=== PATIENT | male | born 1960 | race Caucasian/White ===

== ENCOUNTER 2025-07-29 07:56 | Outpatient (AMB) | payer MEDICARE, MEDICAID, SELFPAY ==
--- OUTSIDE RECORDS SUMMARY | 2025-07-29 07:59 | XMS_ITS | Clinical Summary ---
Author Organization [facility] Address [address] [place] [address] Phone Care Team Providers Care Staff Weapons Officer Name Role Phone Seda Klein MD Primary Care Provider [phone] Allergies Active Allergy Reactions Criticality Noted Date Comments Aspirin Palpitations High 11/30/2013 Medications guaifenesin/eph edrine HCl (PRIMATENE ASTHMA ORAL) Take by mouth. Active albuterol HFA (PROAIR HFA ; PROVENTIL HFA ; VENTOLIN HFA) 90 mcg/actuation inhaler Inhale 2 puffs by mouth every 6 (six) hours if needed for wheezing. 6.7 g 5 Active rosuvastatin (CRESTOR) 5 mg tablet Take 1 tablet (5 mg total) by mouth 1 (one) time each day. 4 Active amLODIPine (NORVASC) 5 mg tablet Take 1 tablet (5 mg total) by mouth 1 (one) time each day. 4 Active losartan (COZAAR) 50 mg tablet Take 1 tablet (50 mg total) by mouth 1 (one) time each day. 90 tablet 5 01/26/20 25 Discontinu ed(Side effects) Active Problems Problem Noted Date Diagnosed Date Hyperlipidemia 10/22/2023 Hypertension 10/22/2023 Mild intermittent asthma without complication Surgical History Surgery Date Site/Laterality Comments OTHER SURGICAL HISTORY PROCEDURE: DENIES PREVIOUS SURGERY COLONOSCOPY 01/15/2024 - 02/14/2024 left sided tics, [address] Tyson Medical History Medical History Date Comments Mild intermittent asthma, uncomplicated DX:Mild intermittent asthma, uncomplicated Hypertension Hyperlipidemia Sleep apnea Kidney stone Dysphagia Family History Medical History Relation Name Comments Lung cancer Father Diabetes Mother Lung cancer Mother Stroke Other Paternal and Ma ternal Uncle Diabetes Sister Relation Name Status Comments Father Mother Other Sister Social History Tobacco Use Types Packs/Day Years Used Date Smoking Tobacco: Never Smokeless Tobacco: Never Tobacco Cessation:Counseling Given: Not Answered Alcohol Use Standard Drinks/Week Comments Not Currently 0 (1 standard drink = 0.6 oz pur e alcohol) Interpersonal Safety Answer Date Record ed Physical Abuse Unrecognized value 02/15/2025 Verbal Abuse Unrecognized value 02/15/2025 Sex and Gender Information Value Date Recorded Sex Assigned at Male 11/13/2024 5:39 PM EST Legal Sex Male 8:18 PM EST Gender Identity Male 11/13/2024 5:39 PM EST Sexual Orientation Straight 11/13/2024 5: 39 PM EST Obstetrics History Last Filed Vital Signs Vital Sign Reading Time Taken Comments Blood Pressure 152/76 02/15/2025 12:19 PM EDT Pulse 59 02/15/2025 12:19 PM EDT Temperature 36.1 C (97 F) 02/15/2025 11:59 AM EDT Respiratory Rate 12 02/15/2025 12:19 PM EDT Oxygen Saturation 98% 02/15/2025 12:19 PM EDT Inhaled Oxygen Concentration - - Weight 107 kg (235 lb) 02/15/2025 11:13 AM EDT Height 172.7 cm (5' 8 ) 02/15/2025 11:13 AM EDT Body Mass Index 35.73 02/15/2025 11:13 AM EDT Plan of Treatment Health Maintenance Due Date Last Done Comments RSV Immunization Adult Patients (1 - Risk 50-74 years 1-dose series) 02/25/2008 Zoster Vaccines (1 of 2) 02/25/2008 Hepatitis C Screening 10/10/2023 Medicare Annual Wellness Visit 10/10/2023 Social Influencers of Health Screening 10/10/2023 Depression Screening 09/16/2024 COVID-19 Vaccine (3 - 2024-2 6 season) 2025 10/23/2020, 10/02/2020 Influenza Vaccine (#1) 2025 Hypertension/CHF/CAD Annual BMP Blood Test 01/25/2026 01/25/2025, 11/13/2024, 03/02/2024 Falls Risk Assessment 02/15/2026 02/15/2025 Cholesterol Screening (Lipid Panel) 01/25/2030 01/25/2025, 03/02/2024 DTaP,Tdap,and Td Vaccines (2 - Td or Tdap) 04/13/2034 04/13/2024 Colorectal Cancer Screening: Colonoscopy 04/15/2035 04/15/2025, 01/29/2024 Pneumococcal Vaccine: 50+ Years Completed 04/13/2024 HIB Vaccines Aged Out No longer eligi ble based on patient's age to complete this topic HPV Vaccines Aged Out No longer eligi ble based on patient's age to complete this topic Hepatitis A Vaccines Aged Out No long er eligible based on patient's age to complete this topic Hepatitis B Vaccines Aged Out No long er eligible based on patient's age to complete this topic IPV Vaccines Aged Out No longer eligi ble based on patient's age to complete this topic MMR Vaccines Aged Out No longer eligi ble based on patient's age to complete this topic Meningococcal ACWY Vaccine Aged Out N o longer eligible based on patient's age to complete this topic Meningococcal B Vaccine Aged Out No l onger eligible based on patient's age to complete this topic RSV Immunization Patients Under 20 months Aged Out No longer eligible b ased on patient's age to complete this topic Varicella Vaccines Aged Out No longer eligible based on patient's age to complete this topic Procedures Procedure Name Priority Date/Time Associated Diagnosis Comments COLONOSCOPY Routine 04/15/2025 3:27 PM EDT COMPREHENSIVE METABOLIC PANEL Routine 01/25/2025 11:16 AM EDT Primary hypertension LIPID PANEL WITH REFLEX TO DIRECT LDL Routine 01/25/2025 11:16 AM EDT Hyperlipidemia, unspecified hyperlipidemia type from Last 3 Months or Most Recently Relevant to Health Maintenance Results * COLONOSCOPY (04/15/2025 3:27 PM EDT) Anatomical Region Laterality Modality Endoscopy us Historical Provider MD GUERRA~PROCEDURE ORDERABLES F inal Result * (ABNORMAL) Lipid panel with reflex to direct LDL (01/25/2025 11:16 AM EDT) Pathologist [facility] Cholesterol 248(H) 0 - 200 mg/dL LAB CHEMISTRY METHOD 01/25/2025 5:08 PM EDT [facility] Triglycerides 372(H) 0 - 150 mg/dL LAB CHEMISTRY METHOD 01/25/2025 5:08 PM EDT [facility] HDL 53 >=40 mg/dL LAB CHEMISTRY METHOD 01/25/2025 5:08 PM EDT [facility] LDL Calculated 121(H) 0 - 100 mg/dL LAB CHEMISTRY METHOD 01/25/2025 5:08 PM EDT [facility] VLDL Cholesterol Waldo 74.4 mg/dL LAB CHEMISTRY METHOD 01/25/2025 5:08 PM [facility] Non HDL Chol. (LDL+VLDL) 195(H) <145 mg/dL LAB CHEMISTRY METHOD 01/25/2025 5:08 PM EDT [facility] Chol/HDL Ratio 4.7(H) 0.0 - 4.4 LAB CHEMISTRY METHOD 01/25/2025 5:08 PM [facility] Blood Venous blood specimen / Unknown Venipuncture / Unknown 01/25/2025 11:16 AM EDT 01/25/2025 11:17 AM EDT us Monty BERNAL LAB BLOOD ORDERABLES Final Res ult [facility] [address] [place] [address], * Comprehensive metabolic panel (01/25/2025 11:16 AM EDT) [facility] Sodium 136 133 - 145 mmol/L LAB CHEMISTRY METHOD 01/25/2025 5:14 PM EDT [facility] Potassium 4.7 3.5 - 5.5 mmol/L LAB CHEMISTRY METHOD 01/25/2025 5:14 PM EDT [facility] Comment:Hemolysis present Chloride 105 96 - 110 mmol/L LAB CHEMISTRY METHOD 01/25/2025 5:14 PM [facility] CO2 25 21 - 32 mmol/L LAB CHEMISTRY METHOD 01/25/2025 5:14 PM [facility] Anion Gap 6 3 - 11 LAB CHEMISTRY METHOD 01/25/2025 5:14 PM [facility] Glucose 93 70 - 100 mg/dL LAB CHEMISTRY METHOD 01/25/2025 5:14 PM [facility] BUN 15 5 - 25 mg/dL LAB CHEMISTRY METHOD 01/25/2025 5:14 PM [facility] Creatinine 0.87 0.70 - 1.30 mg/dL LAB CHEMISTRY METHOD 01/25/2025 5:14 PM [facility] eGFR 95 >=60 mL/min/1. 73m2 LAB CHEMISTRY METHOD 01/25/2025 5:14 PM [facility] Comment:Calculation based on the Chronic Kidney Disease Epidemiology Collaboration (CKD-EPI) equation refit without adjustment for race. BUN/Creatinine Ratio 17.2 LAB CHEMISTRY METHOD 01/25/2025 5:14 PM [facility] Calcium 9.2 8.5 - 10.5 mg/dL LAB CHEMISTRY METHOD 01/25/2025 5:14 PM [facility] AST (SGOT) 30 10 - 42 unit/L LAB CHEMISTRY METHOD 01/25/2025 5:14 PM [facility] ALT (SGPT) 32 10 - 60 unit/L LAB CHEMISTRY METHOD 01/25/2025 5:14 PM [facility] Alkaline Phosphatase 61 42 - 121 unit/L LAB CHEMISTRY METHOD 01/25/2025 5:14 PM [facility] Total Protein 7.9 6.0 - 8.0 g/dL LAB CHEMISTRY METHOD 01/25/2025 5:14 PM [facility] Albumin 3.4 3.2 - 5.0 g/dL LAB CHEMISTRY METHOD 01/25/2025 5:14 PM EDT [facility] Total Bilirubin 0.3 0.0 - 1.4 mg/dL LAB CHEMISTRY METHOD 01/25/2025 5:14 PM EDT [facility] Blood Venous blood specimen / Unknown Venipuncture / Unknown 01/25/2025 11:16 AM EDT 01/25/2025 11:17 AM EDT us Monty BERNAL LAB BLOOD ORDERABLES Final Res ult [facility] [address] [place] [address], from Last 3 Months or Most Recently Relevant to Health Maintenance Insurance MEDICAID - [place] MEDICARE Care Teams Staff Weapons Officer Relationship Specialty Start Date End Date Seda Klein MD [address] [place] [id number] PCP - General Internal Medicine 12/25/24
--- OUTSIDE RECORDS SUMMARY | 2025-07-29 07:59 | XMS_ITS | Clinical Summary ---
Author Organization [facility] Address [address] [place] [address] Care Team Providers Care Bulk Pigment Reducer Name Role Phone Unavailable Primary Care Provider Unavailabl e Social History Tobacco Use Types Packs/Day Years Used Date Smoking Tobacco: Never Assessed Sex and Gender Information Value Date Recorded Sex Assigned at Not on file Legal Sex Male 10:34 AM EST Gender Identity Not on file Sexual Orientation Not on file Plan of Treatment Health Maintenance Due Date Last Done Comments Hepatitis C Screening 1960 DTaP/Tdap/Td (1 - Tdap) 02/25/1976 Pneumococcal 50+ years (1 of 1 - PCV) 02/25/2008 Zoster (Shingrix) (1 of 2) 02/25/2008 COVID-19 Vaccine ( - 2024-2 6 season) 2025 Influenza (#1) 2025 RSV (1 - 1-dose 75+ series) 2033 Abdominal Aorta Imaging Discontinued HPV Vaccine (No Doses Required) Completed Hep A Aged Out No longer eligi ble based on patient's age to complete this topic Hep B Aged Out No longer eligi ble based on patient's age to complete this topic Hib Aged Out No longer eligi ble based on patient's age to complete this topic Meningococcal ACWY Aged Out No longer eligible based on patient's age to complete this topic Zoster (Zostavax) Discontinued
--- NOTE | 2025-07-29 08:09 | MHC.PC.OV ---
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 Accompanied by: Self / Same As Patient Allergies acetaminophen Allergy (Intermediate, Verified 07/29/25 08:15) heart racing Medication List - Last Reconciled 07/29/25 by Omero Byers MD albuterol sulfate 90 mcg/actuation (Ventolin HFA) 2 puffs inhalation Q6H PRN rosuvastatin 5 mg PO DAILY Tobacco use date assessed: 07/29/25 Fall risk assessment: No Falls in past year Last assessed Fall Risk: 07/29/25 Dental Screening Dental Screen Date: 07/29/25 Did you have a dental visit in the last 12 months?: Yes Was dental information given to patient?: Patient has dentist HPI HPI Comments History of Present Illness Details History of Present Illness The patient is a 65-year-old male presenting for a general medical evaluation. Chronic Asthma: The patient has a history of chronic asthma managed with an albuterol (Ventolin) inhaler and Primatene nasal spray as needed. His last emergency room visit for an asthma attack was approximately eight years ago. Hyperlipidemia: The patient has a history of hyperlipidemia and was previously taking rosuvastatin, but he ran out of the medication. He previously experienced significant foot swelling from a different, unspecified cholesterol medication, which required an emergency room visit. Due to this adverse reaction, he has refused to take that particular medication since. Health Maintenance: The patient has undergone two colonoscopies in the past, with the most recent one occurring last year with good results. Surgical History: - The patient denies any history of surgeries. Medications: - Albuterol (Ventolin) inhaler for asthma. - Primatene nasal spray for asthma. - Rosuvastatin for hyperlipidemia (not currently taking). - DayQuil taken prophylactically. Social History: - Substance Use: Denies smoking, alcohol consumption, and illicit drug use. - Employment: Retired for about one year. 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 - Weight: Reports weight gain since retiring. - Living Situation: Lives with his brother and serves as his caregiver. - Sleep: Reports sleeping about 5 hours per night, often waking at 3:00 AM. Diagnostic Results: - Colonoscopy: Last performed the previous year, with good results. Past Medical History - Chronic asthma, with last hospitalization approximately 8 years ago. - Hyperlipidemia, history of rosuvastatin use. - Adverse drug reaction (peripheral edema) to an unspecified cholesterol medication, which led to an emergency room visit. - Colonoscopy screening (x2), with the last one being the previous year and normal results. Health Maintenance - Will order comprehensive lab work to get a complete picture of the patient's health status. - Labs to include: complete blood count (CBC), comprehensive metabolic panel (CMP), hemoglobin A1c, lipid panel, hepatitis B, hepatitis C, HIV, magnesium, thyroid studies, urine studies, vitamin B12, folate, and vitamin D. - Recommended the patient take Vitamin C to boost the immune system. - Plan to follow up in two weeks to review the results and make any necessary adjustments to the treatment plan. [facility] Medical History (Updated 07/29/25 @ 09:00 by Omero Byers MD) Elevated blood pressure reading Class 2 obesity Hyperlipidemia Asthma, mild intermittent Family History (Updated 07/29/25 @ 08:22 by Ronel Donaldson CMA) Mother Diabetes Alzheimer disease Father Dementia Diabetes Social History Housing: Apartment Patient Tobacco Use Status: Never used Tobacco service: No Current occupational status: retired Cognitive needs: No Hearing needs: No Vision needs: No Questionnaire PHQ-9 Over the last 2 weeks, how often have you been bothered by any of the following problems? 1. Little interest or pleasure in doing things: not at all 2. Feeling down, depressed, or hopeless: not at all 3. Trouble falling or staying asleep, or sleeping too much: not at all 4. Feeling tired or having little energy: not at all 5. Poor appetite or overeating: not at all 6. Feeling bad about yourself - or that you are a failure or have let yourself or your family down: not at all 7. Trouble concentrating on things, such as reading the newspaper or watching television: not at all 8. Moving or speaking so slowly that other people could have noticed. Or the opposite - being so fidgety or restless that you have been moving around a lot more than usual: not at all 9. Thoughts that you would be better off or of hurting yourself in some way: not at all Total score: 0 Depression Screening Interpretation: Negative Depression Screening Done: Yes Source: Developed by Drs. Andrés Burkett, Penny Manzano, Viet Monroe and colleagues, with an educational loly from [employer]. Thrive Questionnaire Date Thrive assessed: 07/29/25 I am a: Patient What is your living situation today?: I have a steady place to live Within the past 12 months, did the food you bought not last and you didn't have the money to get more?: Sometimes True Within the past 12 months, did you worry whether your food would run out before you got money to buy more?: Never true Do you have trouble paying for medicines?: No Do you have trouble getting transportation to medical appointments?: No THRIVE Score: 1 HENRIQUE-7 AMB Questionnaire HENRIQUE-7 Date HENRIQUE - 7 assessed: 07/29/25 Feeling nervous, anxious, or on edge: 0 = Not at all Not being able to stop or control worryin = Not at all Worrying too much about different things: 1 = Several days Trouble relaxin = Not at all Being so restless that it is hard to sit still: 0 = Not at all Becoming easily annoyed or irritable: 1 = Several days Feeling afraid as if something awful might happen: 0 = Not at all Total HENRIQUE-7 score (0-4 normal; 5-9 mild; 10-14 moderate; 15-21 severe): 2 Source: Developed by Drs. Andrés Burkett, Penny Manzano, Viet Monroe and colleagues, with an educational loly from [employer]. Review of Systems Narrative Review of Systems - Respiratory: Reports chronic asthma. - Constitutional: Denies feeling sick. - Neurological: Reports hand shaking, which he attributes to taking Dayquil. - Genitourinary/Gastrointestinal: Reports normal urination and bowel movements. - Sleep: Reports sleeping for about 5 hours per night. 10-point ROS reviewed and negative except as noted in HPI Physical exam (Primary Care) Vital Signs: Last Vital Signs Temp 98.3 F 07/29/25 08:18 Pulse 72 07/29/25 08:18 Resp 20 07/29/25 08:18 BP 160/90 H 07/29/25 08:18 Pulse Ox 95 07/29/25 08:18 Oxygen Delivery Method Room Air 07/29/25 08:18 BMI result Body Mass Index 35.8 Tobacco/Smoking Status: Tobacco use Status Tobacco use date assessed 07/29/25 07/29/25 08:10 Patient Tobacco Use Status Never used Tobacco 07/29/25 08:10 PHQ-9: PHQ-9 Score PHQ-9: Total score 0 07/29/25 08:47 Depression Screening Interpretation: Negative Thrive Assessment: Date of Thrive Assessment Date Thrive assessed 07/29/25 07/29/25 08:10 Narrative Physical Exam General: Well-appearing, in no acute distress. Vital signs: Within normal limits. HEENT: Normocephalic, atraumatic. PERRLA, EOMI. Conjunctiva clear, sclera anicteric. Oropharynx clear, mucous membranes moist. TMs intact bilaterally. Neck: Supple, no lymphadenopathy, no thyromegaly, no JVD or carotid bruits. Cardiovascular: RRR, normal S1/S2, no murmurs, rubs, or gallops. Peripheral pulses 2+ and symmetric. No edema. Respiratory: Lungs clear to auscultation bilaterally, no wheezes, rales, or rhonchi. Normal effort. Abdomen: Soft, non-tender, non-distended. Normoactive bowel sounds. No hepatosplenomegaly, no masses. MSK: Full range of motion, no joint swelling or deformity. Normal gait. Skin: Warm, dry, intact. No rashes, lesions, or pallor. Neuro: Alert and oriented x3. Cranial nerves II-XII intact. Strength 5/5 throughout. Sensation intact. Reflexes 2+ symmetric. Normal coordination and gait. Psych: Appropriate mood and affect. Normal judgment and insight. Office Procedures Flu Questionnaire Does the patient have a severe egg allergy?: No Does the patient have severe life threatening allergies?: No Does the patient have a fever or illness today?: No Has the patient ever had Guillain-[place] Syndrome?: No Has the patient ever had any past reaction to a flu shot?: No Immunizations Fluarix [id number] (PF) 45 mcg (15 mcg x 3)/0.5 mL IM syringe Performing Provider: Omero Byers MD Performing Location: [facility] Documented (not given) by: Ronel Donaldson CMA on 07/29/25 08:23 Reason Not Given: Patient Refused Coding Level of Care Code New Pt Level 4 (35155) Diagnoses Asthma, mild intermittent J45.20 Hyperlipidemia E78.5 Class 2 obesity E66.9 Elevated blood pressure reading R03.0 Assessment & Plan Assessment & Plan (1) Asthma, mild intermittent: Code(s): J45.20 - Mild intermittent asthma, uncomplicated Category: Medical (2) Hyperlipidemia: Code(s): E78.5 - Hyperlipidemia, unspecified Category: Medical (3) Class 2 obesity: Code(s): E66.9 - Obesity, unspecified Category: Medical (4) Elevated blood pressure reading: Code(s): R03.0 - Elevated blood-pressure reading, without diagnosis of hypertension Category: Medical Plan Consent The plan to order comprehensive blood work and urine studies was discussed with the patient, who was asked how that sounded. The patient provided verbal consent by responding, All right. Patient was informed and verbally consented to the use of an ambient scribe for clinic note documentation during this visit. Plan 1. Hyperlipidemia - A lipid panel will be ordered to assess current cholesterol levels, including good and bad cholesterol and triglycerides. - Management will be determined at the two-week follow-up appointment based on lab results. Discussion Notes I explained to the patient that I will be ordering a comprehensive set of blood and urine tests to get a complete picture of his overall health. These tests will include a complete blood count, a comprehensive metabolic panel to check liver and kidney function, a hemoglobin A1c for blood sugar, a lipid panel for cholesterol, and screening for hepatitis B, C, and HIV, as well as thyroid function and vitamin levels. We will schedule a follow-up appointment in two weeks to review these results and decide on any necessary medication or treatment adjustments. The patient understood and agreed to this plan. Patient Instructions - Please go to the lab to have the blood and urine tests done as ordered. - We will see you back in the office in two weeks to discuss your test results and next steps. - You can take Vitamin C to help support your immune system. Medical Decision Making The patient is a 65-year-old male with a history of chronic asthma and hyperlipidemia presenting for a general medical evaluation. He has been non-adherent with his cholesterol medication, rosuvastatin, as he ran out. Given his history of a significant adverse reaction (peripheral edema) to a previous, different cholesterol medication, re-evaluation of his lipid profile is necessary before determining the appropriate next steps for management. To establish a comprehensive baseline of his current health, especially as a new patient to me and following his recent assisted, a broad panel of labs including CBC, CMP, HbA1c, thyroid panel, vitamin levels, and infectious disease screening is indicated. A follow-up visit in two weeks is planned to review these results and formulate a definitive treatment plan. Total time spent caring for the patient today was 30 minutes. This includes time spent before the visit reviewing the chart, time spent documenting, and time spent reviewing laboratory results, diagnostic imaging, medications, performing a medically necessary evaluation, counseling on diagnoses, care coordination Orders: Orders Influenza [id number] Immunization Today Z23 - Encounter for immunization Complete Blood Count Auto Diff Today Z13.9 - Encounter for screening, unspecified Hepatitis B Surface Antigen Today Z13.9 - Encounter for screening, unspecified Syphilis Screen Today Z13.9 - Encounter for screening, unspecified Hepatitis C Antibody Today Z13.9 - Encounter for screening, unspecified HIV Ab/Ag Today Z13.9 - Encounter for screening, unspecified UA CC w/rflx Micro + Cult Today Z13.9 - Encounter for screening, unspecified Hemoglobin A1c Today Z13.9 - Encounter for screening, unspecified Magnesium Today Z13.9 - Encounter for screening, unspecified Hepatitis B Surface Antibody Today Z13.9 - Encounter for screening, unspecified Comprehensive Met. Panel Today Z13.9 - Encounter for screening, unspecified TSH reflex Free T4 Today Z13.9 - Encounter for screening, unspecified Lipid Panel Today Z13.9 - Encounter for screening, unspecified Vitamin B12 and Folate Today Z13.9 - Encounter for screening, unspecified Vitamin D 1,25 dihydroxy Today Z13.9 - Encounter for screening, unspecified
[2025-07-29 08:18] VITALS: BP 160/90; PULSE 72; RESP 20; TEMP 36.8; O2SAT 95; BMI 35.8
== END 2025-07-29 08:48 | disposition home or self-care (01) ==
PROVIDERS: Visit Provider Student in an Organized Health Care Education/Training Program
DX: J45.20 Mild intermittent asthma, uncomplicated (principal); E78.5 Hyperlipidemia, unspecified; E66.9 Obesity, unspecified; R03.0 Elevated blood-pressure reading, without diagnosis of hypertension; Z23 Encounter for immunization

== ENCOUNTER 2025-07-29 07:56 | Outpatient (REF) | payer MEDICAID, SELFPAY ==
[2025-07-29 13:21] LABS: MANUAL DIFF FLAG NO
[2025-07-29 13:33] LABS: Appearance Urine Clear; Glucose Urine UA Negative (Negative); PH 5.5 (5.0-9.0); Specific Gravity - Urine >= 1.030 (1.005-1.025)
[2025-07-29 13:42] LABS: Hematocrit 41.4 % (42.0-52.0); Hemoglobin 13.6 g/dl (14.0-18.0); Imm Gran Abs Auto 0.01 X10*3/uL (0.00-0.03); Imm Gran Pct Auto 0.1 % (0.0-0.4); Lymphocytes Absolute Auto 1.5 X10*3/uL (1.2-4.9); Mean Corpuscular HGB Conc 32.9 g/dl (31.0-36.0); Mean Corpuscular Hemoglobin 28.0 pg (27.0-33.0); Mean Corpuscular Volume 85.2 fL (80.0-98.0); NRBC Abs Auto 0.000 X10*3/uL (0.0-0.012); NRBC Pct Auto 0.0 /100WBC (0.0-0.2); Platelet Count 189 X10*3/uL (160-400); Red Blood Count 4.86 X10*6/uL (4.60-5.80); White Blood Count 7.2 X10*3/uL (4.8-10.8)
[2025-07-29 14:09] LABS: Total Hemoglobin (HGBA1C) 2351.7426 umol/L
[2025-07-29 14:27] LABS: Alanine Aminotransferase 21 U/L (0-40); Albumin Level 4.1 g/dL (3.5-5.0); Alkaline Phosphatase 56 U/L (39-117); Anion Gap 10 (12-20); Aspartate Amino Transferase 27 U/L (5-37); Blood Urea Nitrogen 11 mg/dL (9-16); Calcium 9.4 mg/dL (8.4-10.2); Carbon Dioxide 28 mmol/L (22-29); Chloride 107 mmol/L (96-108); Cholesterol 241 mg/dL (<200); Estimated Glomerular Filt Rate > 60; HDL Cholesterol 50 mg/dL (>40); Magnesium 1.9 mg/dL (1.6-2.6); Potassium 4.2 mmol/L (3.3-5.1); Sodium 141 mmol/L (135-145); Total Protein 7.7 g/dL (6.5-8.0); Triglycerides 147 mg/dL (<150)
[2025-07-29 14:51] LABS: Folate 9.7 ng/mL (> or = 4.0); Vitamin B12 620 pg/mL (200-900)
[2025-07-30 03:51] LABS: Syphilis Screen Reactive (Nonreactive)
[2025-07-30 04:05] LABS: HBS Num1 0.00 mIU/mL (0-7.99); HBsAGNum1 0.39 S/CO (0.00-0.99); HIV Num 1 0.06 S/CO (0.00-0.99); Hepatitis B Surface Antigen Negative (Negative); ~HepC Num1 0.15 S/CO (0.00-0.79); ~Hepatitis B Surface Antibody NONREACTIVE (Nonreactive); ~Hepatitis C Antibody Nonreactive (Nonreactive)
[2025-08-02 15:33] LABS: VITAMIN D (1,25 OH) D3 41 pg/mL; Vit D (1,25-Dihydroxy) Total 41 pg/mL (18-72); Vitamin D (1,25 OH) D2 <8 pg/mL
[2025-08-07 15:13] LABS: T.Pallidum Particle Agg Test Inconclusive (Nonreactive)
== END 2025-07-29 07:57 | disposition home or self-care (01) ==
LOC: HO.HKASLDS 07:56
PROVIDERS: PCP Student in an Organized Health Care Education/Training Program; Visit Provider Student in an Organized Health Care Education/Training Program
DX: Z13.9 Encounter for screening, unspecified (principal); Z28.82 Immunization not carried out because of caregiver refusal; J45.20 Mild intermittent asthma, uncomplicated; E78.5 Hyperlipidemia, unspecified; E66.9 Obesity, unspecified; R03.0 Elevated blood-pressure reading, without diagnosis of hypertension; Z79.899 Other long term (current) drug therapy
CPT/HCPCS: 36415; 80053; 80061; 81003; 82607; 82652; 82746; 83036; 83735; 84443; 85025; 86592; 86706; 86780; 86803; 87340; 87389; 90471; 99202

== ENCOUNTER 2025-08-16 11:08 | Outpatient (AMB) | payer MEDICARE, MEDICAID, SELFPAY ==
[2025-08-16 11:17] VITALS: BP 151/81; PULSE 73; TEMP 36.7; O2SAT 95; BMI 34.9
--- NOTE | 2025-08-16 11:17 | MHC.PC.OV ---
Vital Signs 08/16/25 11:17 Height 5 ft 8.11 in Weight 230 lb 4 oz BMI 34.9 BP 151/81 H Blood Pressure Location Lt brachial Position Sitting Pulse 73 Pulse Source Pulse Oximeter Temp 98.1 F Temp Source Oral Pulse Oximetry (%) 95 Oxygen Delivery Method Room Air Intake Visit Reasons: 2 wk - lab review Intake Note: still having difficulty swallowing. Accompanied by: Self / Same As Patient Allergies acetaminophen Allergy (Intermediate, Verified 08/16/25 11:17) heart racing Medication List - Last Reconciled 08/16/25 by Omero Byers MD albuterol sulfate 90 mcg/actuation (Ventolin HFA) 2 puffs inhalation Q6H PRN rosuvastatin 10 mg PO DAILY Tobacco use date assessed: 08/16/25 Fall risk assessment: No Falls in past year Last assessed Fall Risk: 08/16/25 Dental Screening Dental Screen Date: 08/16/25 Did you have a dental visit in the last 12 months?: Yes HPI HPI Comments History of Present Illness Details History of Present Illness The patient is a 65 year old individual presenting for a review of lab results. Anemia: The patient was found to have mild anemia, which is suspected to be due to iron deficiency. The patient notes this issue tends to come and go. The patient denies associated symptoms such as fatigue, shortness of breath, or dizziness upon standing. Hyperlipidemia: The patient is taking rosuvastatin 5 mg for hyperlipidemia. Recent lab results show a total cholesterol of 241 and an LDL cholesterol of 162. Hypertension: The patient has a history of hypertension and was previously prescribed amlodipine by another provider, but discontinued it due to lower extremity edema. The patient owns a home blood pressure cuff but has not been monitoring pressures at home. Dysphagia: The patient reports a recurrence of dysphagia, which presented a couple of months ago. Symptoms include the sensation of food being unable to go down, sometimes resulting in regurgitation. The patient was evaluated by a hose tester who performed a procedure to open it a little bit, after which symptoms temporarily resolved. The dysphagia is intermittent and can be severe enough to prevent eating for a whole day. History of Syphilis: The patient reports a history of syphilis approximately 30 years ago, which was treated with 38 injections. Recent lab work revealed a positive syphilis antibody. History of Herpes: The patient has a history of herpes but reports no recent breakouts. Surgical History: - History of a gastrointestinal procedure for dysphagia, described as having the area opened a little bit by a hose tester a few months ago. Medications: - Rosuvastatin 5 mg: for hyperlipidemia. - Amlodipine: previously taken for hypertension but stopped by the patient due to leg swelling. Social History: - Tobacco: The patient denies smoking. - Diet: The patient was counseled on increasing iron-rich foods such as kidney beans, lentils, liver, broccoli, and spinach to help with anemia. Diagnostic Results: - Chemistry panel: Mild anemia present, suspected to be iron deficiency. - Lipid panel: Total cholesterol is 241, and LDL cholesterol is 162. - Vitamin B12: Appears good. - Vitamin D: Appears good. - Thyroid function tests: Appear good. - Serology: Syphilis antibody is positive. Past Medical History - History of syphilis, treated approximately 30 years ago. - History of herpes simplex virus, without recent outbreaks. - Hypertension, with amlodipine intolerance resulting in leg swelling. - Hyperlipidemia. - Intermittent anemia. - Dysphagia, previously evaluated by a hose tester. Health Maintenance - Discussed dietary modifications to include iron-rich foods like kidney beans, lentils, liver, broccoli, and spinach to manage anemia. - Provided instructions for home blood pressure monitoring. [facility] Medical History (Updated 08/16/25 @ 12:50 by Omero Byers MD) History of herpes genitalis History of syphilis Anemia Hypertension Swallowing difficulty Elevated blood pressure reading Class 2 obesity Hyperlipidemia Asthma, mild intermittent Family History Mother Diabetes Alzheimer disease Father Dementia Diabetes Social History Housing: Apartment Patient Tobacco Use Status: Never used Tobacco service: No Current occupational status: retired Cognitive needs: No Hearing needs: No Vision needs: No Questionnaire PHQ-9 Over the last 2 weeks, how often have you been bothered by any of the following problems? 1. Little interest or pleasure in doing things: not at all 2. Feeling down, depressed, or hopeless: not at all 3. Trouble falling or staying asleep, or sleeping too much: not at all 4. Feeling tired or having little energy: not at all 5. Poor appetite or overeating: not at all 6. Feeling bad about yourself - or that you are a failure or have let yourself or your family down: not at all 7. Trouble concentrating on things, such as reading the newspaper or watching television: not at all 8. Moving or speaking so slowly that other people could have noticed. Or the opposite - being so fidgety or restless that you have been moving around a lot more than usual: not at all 9. Thoughts that you would be better off or of hurting yourself in some way: not at all Total score: 0 Depression Screening Interpretation: Negative Depression Screening Done: Yes Source: Developed by Drs. Andrés Burkett, Viet Green and colleagues, with an educational loly from [employer]. Thrive Questionnaire Date Thrive assessed: 08/16/25 I am a: Patient What is your living situation today?: I have a steady place to live Within the past 12 months, did the food you bought not last and you didn't have the money to get more?: Sometimes True Within the past 12 months, did you worry whether your food would run out before you got money to buy more?: Never true Do you have trouble paying for medicines?: No Do you have trouble getting transportation to medical appointments?: No Do you have trouble paying your heating and electricity bill?: I choose not to answer this question THRIVE Score: 1 AUDIT C Alcohol Use Questionnaire (AUDIT-C) 1. How often do you have a drink containing alcohol?: Never Total Score: 0 HENRIQUE-7 AMB Questionnaire HENRIQUE-7 Date HENRIQUE - 7 assessed: 08/16/25 Feeling nervous, anxious, or on edge: 0 = Not at all Not being able to stop or control worryin = Not at all Worrying too much about different things: 1 = Several days Trouble relaxin = Not at all Being so restless that it is hard to sit still: 0 = Not at all Becoming easily annoyed or irritable: 1 = Several days Feeling afraid as if something awful might happen: 0 = Not at all Total HENRIQUE-7 score (0-4 normal; 5-9 mild; 10-14 moderate; 15-21 severe): 2 Source: Developed by Drs. Andrés Burkett, Penny Manzano, Viet Monroe and colleagues, with an educational loly from [employer]. Review of Systems Narrative Review of Systems - Constitutional: Denies fatigue. - Cardiovascular: Denies orthostatic dizziness. - Respiratory: Denies shortness of breath. - Gastrointestinal: Reports dysphagia and regurgitation. - Integumentary: Reports history of herpes but denies current breakouts. - Musculoskeletal: Reports history of lower extremity edema with amlodipine use. 10-point ROS reviewed and negative except as noted in HPI Physical exam (Primary Care) Vital Signs: Last Vital Signs Temp 98.1 F 08/16/25 11:17 Pulse 73 08/16/25 11:17 BP 151/81 H 08/16/25 11:17 Pulse Ox 95 08/16/25 11:17 Oxygen Delivery Method Room Air 08/16/25 11:17 BMI result Body Mass Index 34.9 Tobacco/Smoking Status: Tobacco use Status Tobacco use date assessed 08/16/25 08/16/25 11:20 Patient Tobacco Use Status Never used Tobacco 08/16/25 11:20 PHQ-9: PHQ-9 Score PHQ-9: Total score 0 08/16/25 11:20 Depression Screening Interpretation: Negative Thrive Assessment: Date of Thrive Assessment Date Thrive assessed 08/16/25 08/16/25 11:20 Narrative Physical Exam General: Well-appearing, in no acute distress. Vital signs: Within normal limits. HEENT: Normocephalic, atraumatic. PERRLA, EOMI. Conjunctiva clear, sclera anicteric. Oropharynx clear, mucous membranes moist. TMs intact bilaterally. Neck: Supple, no lymphadenopathy, no thyromegaly, no JVD or carotid bruits. Cardiovascular: RRR, normal S1/S2, no murmurs, rubs, or gallops. Peripheral pulses 2+ and symmetric. No edema. Respiratory: Lungs clear to auscultation bilaterally, no wheezes, rales, or rhonchi. Normal effort. Abdomen: Soft, non-tender, non-distended. Normoactive bowel sounds. No hepatosplenomegaly, no masses. MSK: Full range of motion, no joint swelling or deformity. Normal gait. Skin: Warm, dry, intact. No rashes, lesions, or pallor. Neuro: Alert and oriented x3. Cranial nerves II-XII intact. Strength 5/5 throughout. Sensation intact. Reflexes 2+ symmetric. Normal coordination and gait. Psych: Appropriate mood and affect. Normal judgment and insight. Office Procedures Flu Questionnaire Does the patient have a severe egg allergy?: No Does the patient have severe life threatening allergies?: No Does the patient have a fever or illness today?: No Has the patient ever had Guillain-Alpine Syndrome?: No Has the patient ever had any past reaction to a flu shot?: No Immunizations Fluarix [id number] (PF) 45 mcg (15 mcg x 3)/0.5 mL IM syringe Performing Provider: Omero Byers MD Performing Location: [facility] [place] [facility] Documented (not given) by: Ronel Donaldson CMA on 08/16/25 11:32 Reason Not Given: Patient Refused Coding Level of Care Code Est Pt Level 3 (02488) Diagnoses Hyperlipidemia E78.5 Hypertension I10 Class 2 obesity E66.9 Swallowing difficulty R13.10 Asthma, mild intermittent J45.20 Anemia D64.9 History of syphilis Z86.19 History of herpes genitalis Z86.19 Assessment & Plan Assessment & Plan (1) Hyperlipidemia: Code(s): E78.5 - Hyperlipidemia, unspecified Category: Medical (2) Hypertension: Code(s): I10 - Essential (primary) hypertension Category: Medical (3) Class 2 obesity: Code(s): E66.9 - Obesity, unspecified Category: Medical (4) Swallowing difficulty: Code(s): R13.10 - Dysphagia, unspecified Category: Medical (5) Asthma, mild intermittent: Code(s): J45.20 - Mild intermittent asthma, uncomplicated Category: Medical (6) Anemia: Code(s): D64.9 - Anemia, unspecified Category: Medical (7) History of syphilis: Code(s): Z86.19 - Personal history of other infectious and parasitic diseases Category: Medical (8) History of herpes genitalis: Code(s): Z86.19 - Personal history of other infectious and parasitic diseases Category: Medical Plan Consent Patient was informed and verbally consented to the use of an ambient scribe for clinic note documentation during this visit. Plan 1. Iron-Deficiency Anemia - Prescribed iron supplementation. - Prescribed ascorbic acid (Vitamin C) to be taken with iron to improve absorption. - Advised to take one hour before or two hours after eating. - Counseled on potential side effects, including constipation and dark stools, and recommended increasing water intake or using [id number] MiraLAX if needed. - Plan to repeat labs in three to six months to reassess. 2. Hyperlipidemia - Increased rosuvastatin dosage from 5 mg to 10 mg daily to achieve an LDL cholesterol target of below 100. 3. Hypertension - Discontinued amlodipine due to side effect of lower extremity edema. - Prescribed lisinopril 10 mg daily. - Instructed the patient on home blood pressure monitoring, to be performed twice daily for two weeks. - Plan to follow up in two weeks to review the blood pressure log and determine if dose adjustment is necessary. 4. Dysphagia - Advised the patient to contact the hose tester they previously saw to report the recurrence of symptoms. - A referral to gastroenterology was provided in case a new one is required. Discussion Notes I reviewed the patient's lab results, which indicated mild anemia, likely due to iron deficiency. We discussed treatment options, and the patient opted for supplementation, so I prescribed iron with vitamin C to enhance absorption, counseling on potential side effects like constipation and dark stools. The patient's cholesterol remains high, with an LDL of 162. I explained the goal is to lower this below 100 and accordingly increased the rosuvastatin dose to 10 mg. For hypertension, I initiated lisinopril 10 mg, as the patient had previously stopped amlodipine due to leg swelling. I discussed the rare risk of angioedema with lisinopril and provided instructions for home blood pressure monitoring to guide future dose adjustments. The positive syphilis antibody test was discussed and attributed to a past treated infection, requiring no further investigation. The patient reported a recurrence of dysphagia, and I advised the patient to contact the specialist who had previously managed it. A new referral for gastroenterology was provided in case it is needed. A follow-up visit is scheduled in two weeks to review the blood pressure log. Patient Instructions - An iron pill and a vitamin C pill have been sent to your pharmacy. - Take the vitamin C first, then the iron, as this helps your body absorb the iron better. - Take the iron one hour before you eat or two hours after you eat. - The iron may make you constipated and may make your stool dark, which is normal. - If you become constipated, drink more water or you can buy MiraLAX at the pharmacy. - You will now take rosuvastatin 10 mg for your cholesterol instead of 5 mg. - A new medication for blood pressure, lisinopril 10 mg, has been sent to your pharmacy. - Please check your blood pressure at home every morning and every night for the next two weeks. - When you check your blood pressure, sit down and relax for 10 minutes first. Keep your feet on the floor and your arm at heart level. - Bring your blood pressure log with you to your next appointment in two weeks. - Please call your hose tester's office to let them know your swallowing problems have returned. Medical Decision Making The patient is a 65-year-old individual presenting for a review of laboratory results. The labs revealed a mild, asymptomatic anemia, which is likely iron deficiency-related. Given the patient is asymptomatic, oral iron supplementation with vitamin C for enhanced absorption is appropriate, with a plan to re-evaluate with repeat labs in 3-6 months. Hyperlipidemia is inadequately controlled on rosuvastatin 5 mg, with a total cholesterol of 241 and an LDL of 162. To achieve the goal LDL of <100, the rosuvastatin dose was increased to 10 mg. The patient has hypertension but discontinued amlodipine due to the known side effect of lower extremity edema. Lisinopril 10 mg, an AQUILES inhibitor, was initiated as an alternative, and the patient was counseled on the rare but serious side effect of angioedema. Home blood pressure monitoring will be essential for titrating the dose, and a follow-up in two weeks is scheduled for this purpose. The positive syphilis antibody is consistent with the patient's history of a treated infection 30 years prior and requires no further workup. The recurrent dysphagia requires specialist re-evaluation. The patient was advised to contact the previous hose tester, and a referral was provided to facilitate the visit. Total Time Statement 20 min Total time spent caring for the patient today includes pre-visit chart review, documentation, review of laboratory and diagnostic imaging results, medication reconciliation, medically necessary evaluation, counseling on diagnoses, care coordination, ordering appropriate tests and medications, review of tests performed by other providers, reporting test results to the patient, and communication with other healthcare providers. Orders: Orders Influenza [id number] Immunization Today Z23 - Encounter for immunization Referrals Gastroenterology Referral R13.10 - Dysphagia, unspecified Medications: New ferrous sulfate 325 mg PO DAILY 90 tabs 0RF rosuvastatin 10 mg PO DAILY 90 tabs 0RF albuterol sulfate 90 mcg/actuation (Ventolin HFA) 2 puffs inhalation Q6H PRN 8.5 grams 0RF shortness of breath or wheezing lisinopril 10 mg PO DAILY 30 tabs 0RF ascorbic acid (vitamin C) 500 mg PO DAILY 90 tabs 0RF
--- OUTSIDE RECORDS SUMMARY | 2025-08-16 14:36 | XMS_ITS ---
[facility] Name [facility] Organization [facility] Care Team Organization Name Specialty Phone Email Start Date End [facility] 05/05/2025 [facility] Seda Klein Primary [facility] 02/22/2023 024
--- OUTSIDE RECORDS SUMMARY | 2025-08-16 14:36 | XMS_ITS | Clinical Summary ---
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 Farmer Name Role Phone Seda Klein MD Primary Care Provider [phone] Allergies Active Allergy Reactions Criticality Noted Date [...] direct LDL (01/25/2025 11:16 AM EDT) Pathologist [facility] Cholesterol 248(H) 0 - 200 mg/dL LAB CHEMISTRY METHOD 01/25/2025 5:08 PM EDT [facility] Triglycerides 372(H) 0 - 150 mg/dL LAB CHEMISTRY METHOD 01/25/2025 5:08 PM EDT [facility] HDL 53 >=40 mg/dL LAB CHEMISTRY METHOD 01/25/2025 5:08 PM EDT [facility] LDL Calculated 121(H) 0 - 100 mg/dL LAB CHEMISTRY METHOD 01/25/2025 5:08 PM EDT [facility] VLDL Cholesterol Waldo 74.4 mg/dL LAB CHEMISTRY METHOD 01/25/2025 5:08 PM [facility] Non HDL Chol. (LDL+VLDL) 195(H) <145 mg/dL LAB CHEMISTRY METHOD 01/25/2025 5:08 PM EDT [facility] Chol/HDL Ratio 4.7(H) 0.0 - 4.4 LAB CHEMISTRY METHOD 01/25/2025 5:08 PM [facility] Blood Venous blood specimen / Unknown Venipuncture / Unknown 01/25/2025 11:16 AM EDT 01/25/2025 11:17 AM EDT us Monty BERNAL LAB BLOOD ORDERABLES Final Res ult [facility] [address] [place] [address], * Comprehensive metabolic panel (01/25/2025 11:16 AM EDT) [facility] Sodium 136 133 - 145 mmol/L LAB CHEMISTRY METHOD 01/25/2025 5:14 PM EDT [facility] Potassium 4.7 3.5 - 5.5 mmol/L LAB CHEMISTRY METHOD 01/25/2025 5:14 PM EDT [facility] Comment:Hemolysis present Chloride 105 96 - 110 mmol/L LAB CHEMISTRY METHOD 01/25/2025 5:14 PM [facility] CO2 25 21 - 32 mmol/L LAB CHEMISTRY METHOD 01/25/2025 5:14 PM [facility] Anion Gap 6 3 - 11 LAB CHEMISTRY METHOD 01/25/2025 5:14 PM [facility] Glucose 93 70 - 100 mg/dL LAB CHEMISTRY METHOD 01/25/2025 5:14 PM [facility] BUN 15 5 - 25 mg/dL LAB CHEMISTRY METHOD 01/25/2025 5:14 PM [facility] Creatinine 0.87 0.70 - 1.30 mg/dL LAB CHEMISTRY METHOD 01/25/2025 5:14 PM [facility] eGFR 95 >=60 mL/min/1. 73m2 LAB CHEMISTRY METHOD 01/25/2025 5:14 PM [facility] Comment:Calculation based on the Chronic Kidney Disease Epidemiology Collaboration (CKD-EPI) equation refit without adjustment for race. BUN/Creatinine Ratio 17.2 LAB CHEMISTRY METHOD 01/25/2025 5:14 PM [facility] Calcium 9.2 8.5 - 10.5 mg/dL LAB CHEMISTRY METHOD 01/25/2025 5:14 PM [facility] AST (SGOT) 30 10 - 42 unit/L LAB CHEMISTRY METHOD 01/25/2025 5:14 PM [facility] ALT (SGPT) 32 10 - 60 unit/L LAB CHEMISTRY METHOD 01/25/2025 5:14 PM [facility] Alkaline Phosphatase 61 42 - 121 unit/L LAB CHEMISTRY METHOD 01/25/2025 5:14 PM [facility] Total Protein 7.9 6.0 - 8.0 g/dL LAB CHEMISTRY METHOD 01/25/2025 5:14 PM [facility] Albumin 3.4 3.2 - 5.0 g/dL LAB CHEMISTRY METHOD 01/25/2025 5:14 PM EDT [facility] Total Bilirubin 0.3 0.0 - 1.4 mg/dL LAB CHEMISTRY METHOD 01/25/2025 5:14 PM EDT [facility] Blood Venous blood specimen / Unknown Venipuncture / Unknown 01/25/2025 11:16 AM EDT 01/25/2025 11:17 AM EDT us Monty BERNAL LAB BLOOD ORDERABLES Final Res ult [facility] [address] [place] [address], from Last 3 Months or Most Recently Relevant to Health Maintenance Insurance MEDICAID - [place] MEDICARE Care Teams Crop Or Grain Farmer Relationship Specialty Start Date End Date Seda Klein MD [address] [place] [phone] PCP - General Internal Medicine 12/25/24
--- OUTSIDE RECORDS SUMMARY | 2025-08-16 14:36 | XMS_ITS | Clinical Summary ---
Author Organization [facility] Address [address] [place] [address] Care Team Providers Care Drywall Taper Name Role Phone Unavailable Primary Care Provider [...]
== END 2025-08-16 11:42 | disposition home or self-care (01) ==
PROVIDERS: Visit Provider Student in an Organized Health Care Education/Training Program
DX: E78.5 Hyperlipidemia, unspecified (principal); I10 Essential (primary) hypertension; E66.9 Obesity, unspecified; R13.10 Dysphagia, unspecified; J45.20 Mild intermittent asthma, uncomplicated; D64.9 Anemia, unspecified; Z86.19 Personal history of other infectious and parasitic diseases; Z23 Encounter for immunization

== ENCOUNTER → 2025-08-16 11:08 | Outpatient (BNVA) | payer MEDICARE, MEDICAID, SELFPAY | PROVIDERS: Visit Provider Student in an Organized Health Care Education/Training Program | DX: R13.10 Dysphagia, unspecified (principal); D50.9 Iron deficiency anemia, unspecified; E66.9 Obesity, unspecified; E78.5 Hyperlipidemia, unspecified; J45.20 Mild intermittent asthma, uncomplicated; Z86.19 Personal history of other infectious and parasitic diseases; Z13.30 Encounter for screening examination for mental health and behavioral disorders, unspecified; Z28.21 Immunization not carried out because of patient refusal | CPT/HCPCS: 90471; 96127; 99212 ==

== ENCOUNTER 2025-08-31 11:13 | Outpatient (AMB) | payer MEDICARE, MEDICAID, SELFPAY ==
--- NOTE | 2025-08-31 11:40 | MHC.PC.OV ---
Vital Signs 08/31/25 11:43 Height 5 ft 8.11 in Weight 226 lb BMI 34.2 BP 142/66 H Blood Pressure Location Lt brachial Position Sitting Pulse 74 Pulse Source Pulse Oximeter Temp 98.4 F Temp Source Oral Pulse Oximetry (%) 96 Oxygen Delivery Method Room Air Intake Visit Reasons: 2 wk f/u Accompanied by: Self / Same As Patient Allergies acetaminophen Allergy (Intermediate, Verified 08/31/25 11:40) heart racing Medication List - Last Reconciled 08/31/25 by Omero Byers MD albuterol sulfate 90 mcg/actuation (Ventolin HFA) 2 puffs inhalation Q6H PRN ascorbic acid (vitamin C) 500 mg PO DAILY ferrous sulfate 325 mg PO DAILY lisinopril 10 mg PO DAILY rosuvastatin 10 mg PO DAILY Tobacco use date assessed: 08/31/25 Fall risk assessment: No Falls in past year Last assessed Fall Risk: 08/31/25 Dental Screening Dental Screen Date: 08/31/25 Did you have a dental visit in the last 12 months?: Yes HPI HPI Comments History of Present Illness Details History of Present Illness The patient is a 65 year old male presenting for a follow-up visit for hypertension management. Essential Hypertension: The patient's medication was recently changed from amlodipine to lisinopril 10 mg. He reports checking his blood pressure in the morning and is happy with the readings, noting they have gone down. He occasionally checks his blood pressure at night and finds it to be consistent with his morning readings. The patient denies any dizziness or other adverse effects from the lisinopril. Medications: - Lisinopril 10 mg for hypertension. Diagnostic Results: - Home blood pressure monitoring: Morning readings include 119/70 mmHg and 100/79 mmHg. Past Medical History - Essential Hypertension: Previously treated with amlodipine. Health Maintenance - The patient is scheduled for a physical in six months. - Recommended follow-up in three months for lab work to monitor kidney function and electrolytes due to lisinopril use. PFSH Medical History History of herpes genitalis History of syphilis Anemia Hypertension Swallowing difficulty Elevated blood pressure reading Class 2 obesity Hyperlipidemia Asthma, mild intermittent Family History Mother Diabetes Alzheimer disease Father Dementia Diabetes Social History (Reviewed 08/31/25 @ 11:41 by Ronel Donaldson [facility]) Housing: Apartment Patient Tobacco Use Status: Never used Tobacco service: No Current occupational status: retired Cognitive needs: No Hearing needs: No Vision needs: No Questionnaire PHQ-9 Over the last 2 weeks, how often have you been bothered by any of the following problems? 1. Little interest or pleasure in doing things: not at all 2. Feeling down, depressed, or hopeless: not at all 3. Trouble falling or staying asleep, or sleeping too much: not at all 4. Feeling tired or having little energy: not at all 5. Poor appetite or overeating: not at all 6. Feeling bad about yourself - or that you are a failure or have let yourself or your family down: not at all 7. Trouble concentrating on things, such as reading the newspaper or watching television: not at all 8. Moving or speaking so slowly that other people could have noticed. Or the opposite - being so fidgety or restless that you have been moving around a lot more than usual: not at all 9. Thoughts that you would be better off or of hurting yourself in some way: not at all Total score: 0 Depression Screening Interpretation: Negative Depression Screening Done: Yes Source: Developed by Drs. Andrés Burkett, Penny Manzano, Viet Monroe and colleagues, with an educational loly from [employer]. Thrive Questionnaire Date Thrive assessed: 08/31/25 I am a: Patient What is your living situation today?: I have a steady place to live Within the past 12 months, did the food you bought not last and you didn't have the money to get more?: Sometimes True Within the past 12 months, did you worry whether your food would run out before you got money to buy more?: Never true Do you have trouble paying for medicines?: No Do you have trouble getting transportation to medical appointments?: No Do you have trouble paying your heating and electricity bill?: I choose not to answer this question THRIVE Score: 1 AUDIT C Alcohol Use Questionnaire (AUDIT-C) 1. How often do you have a drink containing alcohol?: Never Total Score: 0 HENRIQUE-7 AMB Questionnaire HENRIQUE-7 Date HENRIQUE - 7 assessed: 08/31/25 Feeling nervous, anxious, or on edge: 0 = Not at all Not being able to stop or control worryin = Not at all Worrying too much about different things: 1 = Several days Trouble relaxin = Not at all Being so restless that it is hard to sit still: 0 = Not at all Becoming easily annoyed or irritable: 1 = Several days Feeling afraid as if something awful might happen: 0 = Not at all Total HENRIQUE-7 score (0-4 normal; 5-9 mild; 10-14 moderate; 15-21 severe): 2 Source: Developed by Drs. Andrés Burkett, Penny Manzano, Viet Monroe and colleagues, with an educational loly from [employer]. Review of Systems Narrative Review of Systems - Constitutional: Denies feeling unwell. - Neurological: Denies dizziness. 10-point ROS reviewed and negative except as noted in HPI Physical exam (Primary Care) Vital Signs: Last Vital Signs Temp 98.4 F 08/31/25 11:43 Pulse 74 08/31/25 11:43 BP 142/66 H 08/31/25 11:43 Pulse Ox 96 08/31/25 11:43 Oxygen Delivery Method Room Air 08/31/25 11:43 BMI result Body Mass Index 34.2 Tobacco/Smoking Status: Tobacco use Status Tobacco use date assessed 08/31/25 08/31/25 11:41 Patient Tobacco Use Status Never used Tobacco 08/31/25 11:41 PHQ-9: PHQ-9 Score PHQ-9: Total score 0 08/31/25 11:41 Depression Screening Interpretation: Negative Thrive Assessment: Date of Thrive Assessment Date Thrive assessed 08/31/25 08/31/25 11:41 Narrative Physical Exam General: Well-appearing, in no acute distress. Vital signs: Blood pressure 119/70, 100/79. Within normal limits. HEENT: Normocephalic, atraumatic. PERRLA, EOMI. Conjunctiva clear, sclera anicteric. Oropharynx clear, mucous membranes moist. TMs intact bilaterally. Neck: Supple, no lymphadenopathy, no thyromegaly, no JVD or carotid bruits. Cardiovascular: RRR, normal S1/S2, no murmurs, rubs, or gallops. Peripheral pulses 2+ and symmetric. No edema. Respiratory: Lungs clear to auscultation bilaterally, no wheezes, rales, or rhonchi. Normal effort. Abdomen: Soft, non-tender, non-distended. Normoactive bowel sounds. No hepatosplenomegaly, no masses. MSK: Full range of motion, no joint swelling or deformity. Normal gait. Skin: Warm, dry, intact. No rashes, lesions, or pallor. Neuro: Alert and oriented x3. Cranial nerves II-XII intact. Strength 5/5 throughout. Sensation intact. Reflexes 2+ symmetric. Normal coordination and gait. Psych: Appropriate mood and affect. Normal judgment and insight. Office Procedures Flu Questionnaire Does the patient have a severe egg allergy?: No Does the patient have severe life threatening allergies?: No Does the patient have a fever or illness today?: No Has the patient ever had Guillain-[place] Syndrome?: No Has the patient ever had any past reaction to a flu shot?: No Immunizations Fluarix [id number] (PF) 45 mcg (15 mcg x 3)/0.5 mL IM syringe Performing Provider: Omero Byers MD Performing Location: [facility] Documented (not given) by: Ronel Donaldson CMA on 08/31/25 11:46 Reason Not Given: Patient Refused Coding Level of Care Code Est Pt Level 3 (35975) Add On Problem Visit Only Diagnoses Hypertension I10 Assessment & Plan Assessment & Plan (1) Hypertension: Code(s): I10 - Essential (primary) hypertension Category: Medical Plan Consent Patient was informed and verbally consented to the use of an ambient scribe for clinic note documentation during this visit. Plan 1. Essential Hypertension - The patient is pleased with his current blood pressure readings on lisinopril and denies adverse effects such as dizziness. - Continue current dosage of lisinopril 10 mg. - Plan for follow-up in three months to obtain lab work, specifically to monitor kidney function and electrolytes. - If labs are stable, the patient will continue on the current lisinopril regimen. Discussion Notes I reviewed the patient's home blood pressure logs, which are well-controlled on lisinopril 10 mg since switching from amlodipine. The patient is satisfied with the current medication and denies any side effects, including dizziness. We discussed the need for continued monitoring while on lisinopril, and I advised a follow-up appointment in three months for lab work to check his kidney function and electrolytes. If the lab results are within normal limits, he will continue the current treatment plan. Patient Instructions - Continue taking lisinopril 10 mg as prescribed. - You should make a follow-up appointment for three months. - We will need to do blood work at your next visit to check your kidneys and electrolytes. Medical Decision Making The patient is a 65-year-old male here for a hypertension follow-up. His blood pressure is well-controlled after switching from amlodipine to lisinopril 10 mg, with home readings showing significant improvement. The patient reports good tolerance to lisinopril, denying dizziness or other side effects. Given the positive response and patient satisfaction, the decision is to continue the current medication. To ensure safety and monitor for potential adverse effects of an AQUILES inhibitor, a follow-up in three months with lab work to assess renal function and electrolytes is warranted. Total Time Statement 20 min Total time spent caring for the patient today includes pre-visit chart review, documentation, review of laboratory and diagnostic imaging results, medication reconciliation, medically necessary evaluation, counseling on diagnoses, care coordination, ordering appropriate tests and medications, review of tests performed by other providers, reporting test results to the patient, and communication with other healthcare providers. Orders: Orders Influenza [id number] Immunization Today Z23 - Encounter for immunization
[2025-08-31 11:43] VITALS: BP 142/66; PULSE 74; TEMP 36.9; O2SAT 96; BMI 34.2
--- OUTSIDE RECORDS SUMMARY | 2025-08-31 14:48 | XMS_ITS | Clinical Summary ---
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 Name Role Phone Seda Klein MD Primary Care Provider [phone] Allergies Active Allergy Reactions Criticality Noted Date [...] Orientation Straight 11/13/2024 5: 39 PM EST Last Filed Vital Signs Vital Sign Reading [...] to direct LDL (01/25/2025 11:16 AM EDT) Cholesterol 248(H) 0 - 200 mg/dL LAB CHEMISTRY METHOD 01/25/2025 5:08 PM EDT [facility] Triglycerides 372(H) 0 - 150 mg/dL LAB CHEMISTRY METHOD 01/25/2025 5:08 PM EDT [facility] HDL 53 >=40 mg/dL LAB CHEMISTRY METHOD 01/25/2025 5:08 PM EDT [facility] LDL Calculated 121(H) 0 - 100 mg/dL [facility] VLDL Cholesterol Waldo 74.4 mg/dL LAB CHEMISTRY METHOD 01/25/2025 5:08 PM [facility] Non HDL Chol. (LDL+VLDL) 195(H) <145 mg/dL LAB [facility] Chol/HDL Ratio 4.7(H) 0.0 - 4.4 LAB CHEMISTRY METHOD 01/25/2025 5:08 PM [facility] Blood Venous blood specimen / Unknown Venipuncture / Unknown 01/25/2025 11:16 AM EDT 01/25/2025 11:17 AM EDT us Monty BERNAL LAB BLOOD ORDERABLES Final Res ult [facility] [address] [place] [address], * Comprehensive metabolic panel (01/25/2025 11:16 AM EDT) [facility] Sodium 136 133 - 145 mmol/L LAB CHEMISTRY METHOD 01/25/2025 5:14 PM T [facility] Potassium 4.7 3.5 - 5.5 mmol/L LAB CHEMISTRY METHOD 01/25/2025 5:14 PM EDT [facility] Comment:Hemolysis present Chloride 105 96 - 110 mmol/L LAB CHEMISTRY METHOD 01/25/2025 5:14 PM [facility] CO2 25 21 - 32 mmol/L LAB CHEMISTRY METHOD 01/25/2025 5:14 PM [facility] Anion Gap 6 3 - 11 LAB CHEMISTRY METHOD 01/25/2025 5:14 PM [facility] Glucose 93 70 - 100 mg/dL LAB CHEMISTRY METHOD 01/25/2025 5:14 PM [facility] BUN 15 5 - 25 mg/dL LAB CHEMISTRY METHOD 01/25/2025 5:14 PM [facility] Creatinine 0.87 0.70 - 1.30 mg/dL LAB CHEMISTRY METHOD 01/25/2025 5:14 PM [facility] eGFR 95 >=60 mL/min/1. 73m2 LAB CHEMISTRY METHOD 01/25/2025 5:14 PM [facility] Comment:Calculation based on the Chronic Kidney Disease Epidemiology Collaboration (CKD-EPI) equation refit without adjustment for race. BUN/Creatinine Ratio 17.2 LAB CHEMISTRY METHOD 01/25/2025 5:14 PM [facility] Calcium 9.2 8.5 - 10.5 mg/dL LAB CHEMISTRY METHOD 01/25/2025 5:14 PM [facility] AST (SGOT) 30 10 - 42 unit/L LAB CHEMISTRY METHOD 01/25/2025 5:14 PM [facility] ALT (SGPT) 32 10 - 60 unit/L LAB CHEMISTRY METHOD 01/25/2025 5:14 PM [facility] Alkaline Phosphatase 61 42 - 121 unit/L LAB CHEMISTRY METHOD 01/25/2025 5:14 PM [facility] Total Protein 7.9 6.0 - 8.0 g/dL LAB CHEMISTRY METHOD 01/25/2025 5:14 PM [facility] Albumin 3.4 3.2 - 5.0 g/dL LAB CHEMISTRY METHOD 01/25/2025 5:14 PM EDT [facility] Total Bilirubin 0.3 0.0 - 1.4 mg/dL LAB CHEMISTRY METHOD 01/25/2025 5:14 PM EDT [facility] Blood Venous blood specimen / Unknown Venipuncture / Unknown 01/25/2025 11:16 AM EDT 01/25/2025 11:17 AM EDT us Monty BERNAL LAB BLOOD ORDERABLES Final Res ult [facility] [address] [place] [address], from Last 3 Months or Most Recently Relevant to Health Maintenance Insurance MEDICAID - [place] MEDICARE Care Teams Rotary Cutter Feeder Relationship Specialty Start Date End Date Seda Klein MD [address] [place] [phone] PCP - General Internal Medicine 12/25/24
--- OUTSIDE RECORDS SUMMARY | 2025-08-31 14:48 | XMS_ITS | Clinical Summary ---
Author Organization [facility] Address [address] [place] [address] Care Team Providers Care Automation Technician Name Role Phone Unavailable Primary Care Provider [...]
== END 2025-08-31 11:55 | disposition home or self-care (01) ==
LOC: HO.HMCFMS 11:14
PROVIDERS: PCP Student in an Organized Health Care Education/Training Program; Visit Provider Student in an Organized Health Care Education/Training Program
DX: Z23 Encounter for immunization (principal); I10 Essential (primary) hypertension

== ENCOUNTER → 2025-08-31 11:13 | Outpatient (BNVA) | payer MEDICARE, MEDICAID, SELFPAY | PROVIDERS: PCP Student in an Organized Health Care Education/Training Program; Visit Provider Student in an Organized Health Care Education/Training Program | DX: I10 Essential (primary) hypertension (principal); Z28.82 Immunization not carried out because of caregiver refusal; Z13.31 Encounter for screening for depression; Z79.899 Other long term (current) drug therapy | CPT/HCPCS: 90471; 96127; 99212 ==